=== PATIENT | male | born 2000 | race Caucasian/White ===

== ENCOUNTER 2022-05-06 22:33 | Emergency (ER) | payer OTHER, SELFPAY ==
[2022-05-06 22:43] VITALS: BP 118/78; PULSE 75; RESP 18; TEMP 37.2; O2SAT 99; BMI 26.0
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
--- NOTE | 2022-05-06 23:05 | ED_ITS ---
HPI - Wound/Laceration General Chief Complaint: Laceration/Wound Stated Complaint: fell injury to back of head Time Seen by Provider: 05/06/22 22:37 History of Present Illness HPI narrative: Pt was leaning back in a chair and fell over backwards striking the posterior aspect of his scalp leading to a 4 cm well approximated laceration. No LOC. GCS 15 at the time of presentation. Bleeding has stopped. No neurological symptoms. No neck pain. No other injuries. Pt up to date on his tetanus shot. Pt otherwise feeling well. Related Data Home Medications Medication Instructions Recorded Confirmed No Known Home Medications 05/06/22 05/06/22 Allergies Allergy/AdvReac Type Severity Reaction Status Date / Time latex Allergy Intermediate Rash Verified 05/06/22 23:17 Review of Systems Status of ROS: Reports: 10 or more systems reviewed and unremarkable except as noted in History and below [facility] Medical History (Updated 05/06/22 @ 23:36 by Aaron Reyes MD) No significant past medical history Surgical History (Updated 05/06/22 @ 23:12 by Emanuel Reeves RN) No significant past surgical history Social History Smoking Status: Never smoker Do you use any of these nicotine containing products: None Second hand tobacco smoke exposure: No How often do you have a drink containing alcohol: never How often do you have six or more drinks on one occasion: Never AUDIT-C Alcohol total score: 0 Non-prescribed substance use: denies use Exam Narrative: Exam Narrative: EXAM GENERAL: Patient appears comfortable and well. EYES: No scleral icterus. THYROID: no thyroid nodules or thyromegaly. LYMPH: No supraclavicular or cervical lymphadenopathy. SKIN: Well approximated 4 cm laceration on the posterior scalp. EXT: No dependent lower extremity pedal edema. HEART: Regular rate and rhythm with no murmurs, rubs, or gallops. LUNGS: Clear to auscultation bilaterally with no crackles or wheezes. ABD: Soft, non tender, non distended. PSYCH: Good eye contact, speech is not pressured. Neuro: CN 2-12 grossly intact no focal defects. Const: Vital Signs, click to edit/add: Vital Signs - 24 hr 05/06/22 22:43 Temperature 99.0 F Pulse Rate [Right Pulse Oximeter] 75 Respiratory Rate 18 Blood Pressure [Ri ght Upper Arm] 118/78 Pulse Oximetry 99 Oxygen Delivery Me thod Room Air Course Course Hospital Course: Wound cleaned. CT of head and neck ordered. Reevaluation(s) Reevaluation #1: CT head and cervical spine normal. Laceration cleaned and closed wtih 5 elen. Time: 23:33 Vital Signs Vital signs: Initial Vital Signs Temperature 99.0 F 05/06/22 22:43 Temperature Source Temporal Artery Scan 05/06/22 22:43 Pulse Rate 75 05/06/22 22:43 Respiratory Rate 18 05/06/22 22:43 Blood Pressure 118/78 05/06/22 22:43 Blood Pressure Mean 91 05/06/22 22:43 Blood Pressure Position Sitting 05/06/22 22:43 Pulse Oximetry 99 05/06/22 22:43 Oxygen Delivery Method 05/06/22 22:43 Vital Signs Temperature 99.0 F 05/06/22 22:43 Pulse Rate 75 05/06/22 22:43 Respiratory Rate 18 05/06/22 22:43 Blood Pressure 118/78 05/06/22 22:43 Pulse Oximetry 99 05/06/22 22:43 Oxygen Delivery Method 05/06/22 22:43 Temperature 99.0 F 05/06/22 22:43 Pulse Rate 75 05/06/22 22:43 Respiratory Rate 18 05/06/22 22:43 Blood Pressure 118/78 05/06/22 22:43 Pulse Oximetry 99 05/06/22 22:43 Oxygen Delivery Method 05/06/22 22:43 MDM - Wound/Laceration MDM Narrative Medical decision making narrative: Pt stuck head but only injury is a 4 cm laceration. No other symptoms. CT of head and cervical spine negative. Laceration closed with elen. Wound care explained. Follow up for staple removal in 1 week. Differential Diagnosis Differential diagnosis: Likely laceration, abrasion and avulsion of skin Discharge Plan Discharge Clinical Impression: Laceration Condition: Stable Additional Instructions: Keep clean Cover during swimming Triple antibiotic after showering Elen out next Friday Activity Level: No Restrictions Discharge Diet: Regular Prescriptions: No Action No Known Home Medications Stand Alone [facility]: [facility] Inst[facility]
--- OUTSIDE RECORDS SUMMARY | 2022-05-06 23:21 | XMS_ITS | Clinical Summary ---
:2000 Author Organization [employer] [facility] [place] [address] Care Team Providers Name Role Phone Doretha De Jesus MD Primary Care Provider [phone] Allergies Active Allergy Reactions Severity Noted Date Comments Latex Rash 06/23/2018 Medications Medication Sig Dispensed Refills Start Date End Date Status albuterol HFA Inhale 1-2 Puffs 1 Each 5 08/15/2021 Active (PRO-AIR; VENTOLIN; by mouth every 4 PROVENTIL) 90 hours if needed mcg/actuation for Shortness of inhalerIndications: Breath 2nd choice Bronchospasm or Wheezing 1st choice. 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 Sensory processing difficulty 10/21/2014 Resolved Problems Problem Noted Date Resolved Date Exercise-induced RAD (reactive airway disease) 03/24/2014 06/23/2018 Lack of coordination 11/22/2006 01/20/2009 Encounters Date Type Specialty Care Team Description 03/28/2022 Office Visit Tamia Blackburn DO Physical (2 0 year old) 03/28/2022 Travel from Last 3 Months Immunizations Name Administration Dates Next Due AMB Influenza, IIV3 (Age >=3 07/25/2008 years)(Flu Clinic Only) AMB Influenza, IIV4 PF (=>6 mos 07/27/2014 Flulaval,Fluzone Fluarix)(Flu Clinic Only) DTaP 02/18/2007, 04/29/2003, 07/23/2002, 05/19/2002, 03/16/2002 HIB-HepB (Comvax) 01/21/2003, 05/19/2002, 03/16/2002 HPV 9 (Gardasil 9) 06/23/2018, 08/08/2016 Hepatitis A (Peds) 01/20/2009, 03/03/2008 Inactivated Polio Vaccine 02/18/2007, 07/23/2002, 05/19/2002 , 03/16/2002 Influenza A (H1N1), Inactivated (Age 1207/28/2009 >=3 Years) Influenza, IIV3 (Age >=3 years) 07/25/2007, 06/18/2006 Influenza, IIV4 10/14/2019, 06/23/2018, 09/11/2017, 08/08/2016, 07/07/2015 Influenza,LAIV4 Live Intranasal 07/28/2009 (Flumist) MMR 02/18/2007, 01/21/2003 Meningococcal Vaccine (Menveo) 06/23/2018, 03/24/2014 Pneumococcal conj 7-Valent (Prevnar 7) 04/29/2003, 3, 07/23/2002, 03/16/2002 Tdap 02/26/2013 Typhoid (injectable) 03/02/2015 Varicella Vaccine 02/18/2007, 01/21/2003 Family History Relation Name Status Comments Father Alive Mother Alive Social History Tobacco Use Types Packs/Day Years Used Date Never Smoker Smokeless Tobacco: Never Used Tobacco Cessation: Counseling Given: Yes Alcohol Use Standard Drinks/Week Comments Yes 10 (1 standard drink = 0.6 oz pure alcoh ol) Sex Assigned at Date Recorded Not on file Obstetrics History Last Filed Vital Signs Vital Sign Reading Time Taken Comments Blood Pressure 156/89 03/28/2022 1:22 PM CDT Pulse 88 03/28/2022 1:22 PM CDT Temperature 37.1 ??C (98.7 ??F) 02/12/2021 1:40 PM CDT Respiratory Rate 16 07/27/2009 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 Oxygen Saturation 97% 03/28/2022 1:22 PM CDT Inhaled Oxygen Concentration - - Weight 81.1 kg (178 lb 12.8 oz) 03/28/2022 1:22 PM CDT Height 176.5 cm (5' 9.49) 03/28/2022 1:22 PM CDT Body Mass Index 26.03 03/28/2022 1:22 PM CDT Plan of Treatment Health Maintenance Due Date Last Done Comments Pneumococcal series for age 19-64 12/21/2007 (1 - PCV) Hepatitis C screening for age 0512/21/2019 18-79 Influenza for age 9-49 04/11/2022 10/14/2019, 06/23/2018, 09/11/2017, Additional history exists Tetanus booster 02/26/2023 02/26/2013 BMI (ht and wt on same day) for 03/28/2023 03/28/2022, 0808/2020, age 18+ 05/12/2020, Additional history exists Depression screening for age 12+ 03/28/2023 03/28/2022, , 02/22/2020, Additional history exists Well Child Check for age 3-20 03/28/2023 03/28/2022, 2020, 02/22/2020, Additional history exists Tdap Completed 02/26/2013 HPV series for age 9-26 Completed 06/23/2018, 08/08/2016 Meningococcal series for age 11-21 Completed 06/23/2018, 0 03/24/2014 COVID-19 vaccine series Completed 08/22/2021, 12/05/2020, 11/14/2020 Results Not on filefrom Last 3 Months Insurance Payer Benefit Plan / Subscriber ID Effective Dates Phone Addre ss Type Group MEDICA MED[employer] CHOICE [id number] 2019-Present [address] [address] [place] [address] [employer] [id number] 2019-Present [address] [address] [place] [address] Care Teams 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
[2022-05-06 23:37] VITALS: BP 121/70; PULSE 79; RESP 18; TEMP 36.8; O2SAT 99
[2022-05-06 23:39] VITALS: BP 121/70; PULSE 79; RESP 18; TEMP 36.8
--- NOTE | 2022-05-06 23:45 | ED.NURSE ---
staple site cleaned up with hibiclens and bacitracin applied. tolerated well.
== END 2022-05-06 23:46 | disposition home or self-care (01) ==
PROVIDERS: Emergency Provider Internal Medicine; PCP Family Medicine
DX: S01.01XA Laceration without foreign body of scalp, initial encounter (principal); W07.XXXA Fall from chair, initial encounter
CPT/HCPCS: 12002; 70450; 72125; 99283